=== PATIENT | female | born 1985 | race Caucasian/White ===

== ENCOUNTER 2017-10-10 12:09 | Inpatient (IN) | payer OTHER ==
[~2017-10-10] VITALS: Ht 152.4 cm; Wt 54.4 kg
[2017-10-10] MEDS ORDERED: ONDANSETRON ODT 4 MG TAB.RAPDIS SL PRN (14:30)
[2017-10-10] MEDS ORDERED: THIAMINE HCL 200 MG/2 ML VIAL IM ONE (14:30)
[2017-10-10] MEDS ORDERED: ONDANSETRON 4 MG/2 ML VIAL IM PRN (14:30)
[2017-10-10] MEDS ORDERED: MAGNESIUM HYDROXIDE 30 ML LIQUID UDC PO PRN (14:30)
[2017-10-10] MEDS ORDERED: diphenhydrAMINE 50 MG CAPSULE PO PRN (14:30)
[2017-10-10] MEDS ORDERED: MAG HYDROX/AL HYDROX/SIMETH 30 ML LIQUID UDC PO PRN (14:30)
[2017-10-10] MEDS ORDERED: LOPERAMIDE HCL 2 MG CAPSULE PO PRN ×2 (14:30)
[2017-10-10] MEDS ORDERED: DICYCLOMINE HCL 20 MG TABLET PO PRN (14:30)
[2017-10-10] MEDS ORDERED: ACETAMINOPHEN 325 MG TABLET PO PRN (14:30)
[2017-10-10] MEDS ORDERED: LORAZEPAM 1 MG TABLET PO PRN ×3 (14:30)
[2017-10-10] MEDS ORDERED: MIRALAX 17 GM POWD.PACK PO PRN (14:30)
[2017-10-10] MEDS ORDERED: hydrALAZINE HCL 50 MG TABLET PO PRN (15:00)
[2017-10-10 15:10] LABS: *URINE HCG, QUAL NEGATIVE (NEGATIVE)
[2017-10-10 15:20] LABS: BASOPHILS # (AUTO) 0.1 K/uL (0.0-8.0); BASOPHILS % (AUTO) 1.3 % (0.0-2.0); EOSINOPHILS # (AUTO) 0.2 K/uL (0.0-0.7); HEMATOCRIT 45.9 % (37-47); HEMOGLOBIN 15.1 G/DL (12.0-16.0); LYMPHOCYTES # (AUTO) 2.5 K/UL (0.8-4.8); LYMPHOCYTES % (AUTO) 35.6 % (20.5-51.5); MEAN CORPUSCULAR HEMOGLOBIN 29.5 UUG (27.0-31.0); MEAN CORPUSCULAR HGB CONC 33 g/dL (32.0-37.0); MEAN CORPUSCULAR VOLUME 89.5 FL (81.0-99.0); MONOCYTES # (AUTO) 0.5 K/UL (0.1-1.30); MONOCYTES % (AUTO) 7.5 % (0.0-11.0); NEUTROPHILS # (AUTO) 3.6 K/UL (1.8-8.9); NEUTROPHILS % (AUTO) 52.6 % (38.5-71.5); PLATELET COUNT (AUTO) 312 K/UL (150-450); RED BLOOD CELL COUNT(AUTO) 5.13 MIL/UL (4.2-5.4); WHITE BLOOD COUNT (AUTO) 6.9 K/UL (4.0-11.2)
[2017-10-10 15:21] LABS: ALANINE AMINOTRANSFERASE 33 U/L (14-59); ALKALINE PHOSPHATASE 88 U/L (50-136); AMYLASE 47 U/L (25-115); ASPARTATE AMINOTRANSFERASE 19 U/L (15-37); BILIRUBIN,TOTAL 0.2 mg/dL (0.2-1.0); CARBON DIOXIDE 26 mmol/L (21-32); CHLORIDE 105 mmol/L (98-107); GLUCOSE 98 mg/dL (74-106); MAGNESIUM 1.7 mg/dL (1.8-2.4); POTASSIUM 3.5 mmol/L (3.5-5.1); TOTAL PROTEIN, SERUM 6.1 g/dL (6.4-8.2); UREA NITROGEN, BLOOD 6 mg/dL (7-18)
[2017-10-10 15:29] LABS: *AMPHETAMINE, URINE NEGATIVE (NEGATIVE); *BARBITURATE, URINE NEGATIVE (NEGATIVE); *CANNABINOID, URINE POSITIVE (NEGATIVE); *COCCAINE, URINE POSITIVE (NEGATIVE); *OPIATE, URINE NEGATIVE (NEGATIVE); *PHENCYCLIDINE SCREEN,URINE NEGATIVE (NEGATIVE)
[2017-10-10 15:31] LABS: ETHANOL < 3 MG/DL (0-0)
[2017-10-10 16:00] VITALS: BP 121/83
[2017-10-10] MEDS ORDERED: hydrALAZINE HCL 50 MG TABLET PO ONE (16:14)
[2017-10-10] MEDS: LORAZEPAM 1 MG TABLET PO SCH ×2 (16:21→20:36)
[2017-10-10 20:00] VITALS: BP 114/75
[2017-10-10] MEDS: GABAPENTIN 300 MG CAPSULE PO SCH (20:36)
[2017-10-10] MEDS ORDERED: MAGNESIUM OXIDE 400 MG TABLET PO ONE (21:00)
[2017-10-11] VITALS: BP 108/69
[2017-10-11 04:00] VITALS: BP 98/57
[2017-10-11 05:06] LABS: HEPATITIS B SURFACE AG Negative (Negative)
[2017-10-11 08:00] VITALS: BP 147/95
[2017-10-11] MEDS: LORAZEPAM 1 MG TABLET PO SCH ×3 (08:33→21:32)
[2017-10-11] MEDS: FOLIC ACID 1 MG TABLET PO SCH (08:33)
[2017-10-11] MEDS: GABAPENTIN 300 MG CAPSULE PO SCH ×2 (08:33→21:32)
[2017-10-11] MEDS: THIAMINE HCL 100 MG TABLET PO SCH (08:33)
[2017-10-11] MEDS: MULTIVITAMINS,THERAPEUTIC TABLET PO SCH (08:34)
[2017-10-11] MEDS: FLUTICASONE PROP NASAL SPRAY 16 GM BOTTLE NS SCH (08:38)
[2017-10-11] MEDS ORDERED: TUBERCULIN,PURIF.PROT.DERIV. 5 TU/0.1 ML TEST ID ONE (09:00)
[2017-10-11 12:00] VITALS: BP 131/95
[2017-10-11] MEDS: CLONIDINE HCL 0.1 MG TABLET PO PRN (13:59)
[2017-10-11] MEDS ORDERED: LORAZEPAM 1 MG TABLET PO PRN ×2 (15:45)
[2017-10-11 16:00] VITALS: BP 122/79
[2017-10-11 20:00] VITALS: BP 125/81
[2017-10-11] MEDS: IBUPROFEN 400 MG TABLET PO PRN (21:31)
[2017-10-12 08:00] VITALS: BP 158/104
[2017-10-12 09:00] VITALS: BP 128/82
[2017-10-12] MEDS: FLUTICASONE PROP NASAL SPRAY 16 GM BOTTLE NS SCH (09:00)
[2017-10-12] MEDS: THIAMINE HCL 100 MG TABLET PO SCH (09:06)
[2017-10-12] MEDS: LORAZEPAM 1 MG TABLET PO SCH ×3 (09:07→17:03)
[2017-10-12] MEDS: MULTIVITAMINS,THERAPEUTIC TABLET PO SCH (09:07)
[2017-10-12] MEDS: FOLIC ACID 1 MG TABLET PO SCH (09:07)
[2017-10-12] MEDS: GABAPENTIN 300 MG CAPSULE PO SCH ×3 (09:08→20:57)
[2017-10-12] MEDS ORDERED: LORAZEPAM 1 MG TABLET PO ONE (11:45)
[2017-10-12] MEDS ORDERED: CLONIDINE HCL 0.1 MG TABLET PO ONE (11:45)
[2017-10-12] MEDS ORDERED: IBUPROFEN 600 MG TABLET PO ONE (11:45)
[2017-10-12 12:00] VITALS: BP 141/94
[2017-10-12 16:00] VITALS: BP 108/66
[2017-10-12 20:00] VITALS: BP 121/78
[2017-10-12] MEDS ORDERED: LORAZEPAM 1 MG TABLET PO SCH (21:00)
[2017-10-12] MEDS ORDERED: AZITHROMYCIN 250 MG TABLET PO ONE (21:00)
[2017-10-13 08:00] VITALS: BP 139/78
[2017-10-13] MEDS: FLUTICASONE PROP NASAL SPRAY 16 GM BOTTLE NS SCH (09:00)
[2017-10-13] MEDS: AZITHROMYCIN 250 MG TABLET PO SCH (09:19)
[2017-10-13] MEDS: MULTIVITAMINS,THERAPEUTIC TABLET PO SCH (09:19)
[2017-10-13] MEDS: GABAPENTIN 300 MG CAPSULE PO SCH ×2 (09:19→14:49)
[2017-10-13] MEDS: LORAZEPAM 1 MG TABLET PO SCH ×3 (09:19→20:09)
[2017-10-13] MEDS: FOLIC ACID 1 MG TABLET PO SCH (09:19)
[2017-10-13] MEDS: THIAMINE HCL 100 MG TABLET PO SCH (09:20)
[2017-10-13 12:00] VITALS: BP 151/103
[2017-10-13] MEDS: CLONIDINE HCL 0.1 MG TABLET PO PRN (12:36)
[2017-10-13 16:00] VITALS: BP 143/91
[2017-10-13 20:00] VITALS: BP 116/75
[2017-10-13] MEDS ORDERED: GABAPENTIN 300 MG CAPSULE PO SCH (21:00)
[2017-10-14 08:00] VITALS: BP 138/94
[2017-10-14] MEDS: GABAPENTIN 300 MG CAPSULE PO SCH ×3 (08:43→21:26)
[2017-10-14] MEDS: AZITHROMYCIN 250 MG TABLET PO SCH (08:44)
[2017-10-14] MEDS: MULTIVITAMINS,THERAPEUTIC TABLET PO SCH (08:44)
[2017-10-14] MEDS: CLONIDINE HCL 0.1 MG TABLET PO PRN ×2 (08:44→18:33)
[2017-10-14] MEDS: THIAMINE HCL 100 MG TABLET PO SCH (08:44)
[2017-10-14] MEDS: FOLIC ACID 1 MG TABLET PO SCH (08:44)
[2017-10-14] MEDS: FLUTICASONE PROP NASAL SPRAY 16 GM BOTTLE NS SCH (08:45)
[2017-10-14] MEDS ORDERED: LORAZEPAM 1 MG TABLET PO SCH (09:00)
[2017-10-14] MEDS: HYDROXYZINE PAMOATE 25 MG CAPSULE PO PRN ×2 (10:25→18:33)
[2017-10-14 12:00] VITALS: BP 131/90
[2017-10-14] MEDS: LORAZEPAM 1 MG TABLET PO SCH ×2 (14:29→21:26)
[2017-10-14 16:00] VITALS: BP 148/100
[2017-10-14 20:00] VITALS: BP 140/74
[2017-10-14] MEDS ORDERED: PRAZOSIN HCL 1 MG CAPSULE PO SCH (21:00)
[2017-10-15 08:00] VITALS: BP 111/72
[2017-10-15] MEDS ORDERED: LORAZEPAM 1 MG TABLET PO SCH (09:00)
[2017-10-15] MEDS: FLUTICASONE PROP NASAL SPRAY 16 GM BOTTLE NS SCH (09:00)
[2017-10-15] MEDS: FOLIC ACID 1 MG TABLET PO SCH (09:39)
[2017-10-15] MEDS: MULTIVITAMINS,THERAPEUTIC TABLET PO SCH (09:40)
[2017-10-15] MEDS: GABAPENTIN 300 MG CAPSULE PO SCH ×3 (09:40→20:07)
[2017-10-15] MEDS: AZITHROMYCIN 250 MG TABLET PO SCH (09:41)
[2017-10-15] MEDS: THIAMINE HCL 100 MG TABLET PO SCH (09:41)
[2017-10-15] MEDS: HYDROXYZINE PAMOATE 25 MG CAPSULE PO PRN (11:17)
[2017-10-15 12:00] VITALS: BP 120/69
[2017-10-15] MEDS ORDERED: CLONIDINE HCL 0.1 MG TABLET PO ONE (16:15)
[2017-10-15] MEDS ORDERED: HYDROXYZINE PAMOATE 25 MG CAPSULE PO ONE (16:15)
[2017-10-15 16:23] VITALS: BP 132/78
[2017-10-15 20:00] VITALS: BP 128/91
[2017-10-15] MEDS ORDERED: PRAZOSIN HCL 1 MG CAPSULE PO SCH (21:00)
[2017-10-15] MEDS: IBUPROFEN 400 MG TABLET PO PRN (21:22)
[2017-10-15] MEDS ORDERED: PRAZ1CAP2 PO (22:31)
[2017-10-15] MEDS ORDERED: AZIT250T6 PO (22:31)
[2017-10-15] MEDS ORDERED: GABA-534 PO (22:31)
[2017-10-15] MEDS ORDERED: IBUP-1953 PO (22:31)
[2017-10-15] MEDS ORDERED: CLON0.1T14 PO (22:31)
[2017-10-15] MEDS ORDERED: HYDR-3895 PO (22:31)
[2017-10-15] MEDS ORDERED: DIPH50CA37 PO (22:31)
[2017-10-16] VITALS: BP 118/62
[2017-10-16] MEDS: HYDROXYZINE PAMOATE 25 MG CAPSULE PO PRN (07:19)
[2017-10-16 08:00] VITALS: BP 130/96
[2017-10-16] MEDS: FLUTICASONE PROP NASAL SPRAY 16 GM BOTTLE NS SCH (08:31)
[2017-10-16] MEDS: GABAPENTIN 300 MG CAPSULE PO SCH (08:31)
[2017-10-16] MEDS: AZITHROMYCIN 250 MG TABLET PO SCH (08:31)
[2017-10-16] MEDS: THIAMINE HCL 100 MG TABLET PO SCH (08:31)
[2017-10-16] MEDS: FOLIC ACID 1 MG TABLET PO SCH (08:31)
[2017-10-16] MEDS: MULTIVITAMINS,THERAPEUTIC TABLET PO SCH (08:31)
== END 2017-10-16 09:40 | disposition other institution (70) | DRG 895 ==
LOC: SRC 13:28
PROVIDERS: ADMIT Internal Medicine; ATTEND Internal Medicine
PROC: HZ2ZZZZ Detoxification Services for Substance Abuse Treatment (ICD-10-PCS; principal; 2017-10-10)
PROC: HZ31ZZZ Individual Counseling for Substance Abuse Treatment, Behavioral (ICD-10-PCS; 2017-10-12)
DX: F10.232 Alcohol dependence with withdrawal with perceptual disturbance (principal); F33.2 Major depressive disorder, recurrent severe without psychotic features; I15.9 Secondary hypertension, unspecified; F41.9 Anxiety disorder, unspecified; F13.232 Sedative, hypnotic or anxiolytic dependence with withdrawal with perceptual disturbance; E83.42 Hypomagnesemia; F11.90 Opioid use, unspecified, uncomplicated; Y90.0 Blood alcohol level of less than 20 mg/100 ml; Z90.710 Acquired absence of both cervix and uterus; Z81.1 Family history of alcohol abuse and dependence; Z81.8 Family history of other mental and behavioral disorders; F12.90 Cannabis use, unspecified, uncomplicated; J30.9 Allergic rhinitis, unspecified; Z91.89 Other specified personal risk factors, not elsewhere classified; F14.10 Cocaine abuse, uncomplicated; F17.210 Nicotine dependence, cigarettes, uncomplicated; G47.50 Parasomnia, unspecified; H65.03 Acute serous otitis media, bilateral
CPT/HCPCS: 36415; 80307; 80346; 80349; 80353; 83735; 84703; 85025; 86580; 86592; 86705; 86803; 87340; 87806; A4663; G0480; J3535; Q0144; Q0163